=== PATIENT | male | born 1960 | race Hispanic/Latino ===

== ENCOUNTER → 2021-12-07 | Day surgery (SDC) | payer OTHER ==
[~2021-12-07] MED LIST: AMLODIPINE BESY10 MG PO; DIOVAN160 MG PO; FENTANYL CITRATE/PF 100MCG/2 ML INJ ONE; FINASTERIDE5 MG PO; FLOMAX0.4 MG PO; HYOSCYAMINE SULFATE 0.5 MG/ML INJ ONE; MIDAZOLAM HCL 5 MG/ML VIAL ONE; PROPOFOL IV EMULSION 10 MG/ML 20 ML VIAL ONE; XIGDUO XR 5 MG1 EAC1
[2021-12-07 09:15] VITALS: BP 107/74
== END | disposition home or self-care (01) ==
LOC: OR 06:26
PROVIDERS: ATTEND Internal Medicine Gastroenterology
DX: Z12.11 Encounter for screening for malignant neoplasm of colon (principal); D12.2 Benign neoplasm of ascending colon; D12.3 Benign neoplasm of transverse colon; D12.5 Benign neoplasm of sigmoid colon; K62.1 Rectal polyp; K64.8 Other hemorrhoids; I10 Essential (primary) hypertension; E11.9 Type 2 diabetes mellitus without complications; Z01.810 Encounter for preprocedural cardiovascular examination; Z20.822 Contact with and (suspected) exposure to COVID-19; Z79.84 Long term (current) use of oral hypoglycemic drugs; Z79.899 Other long term (current) drug therapy
CPT/HCPCS: 36415; 45385; 82948; 93005; J1980; J2250; J3010

== ENCOUNTER → 2021-12-09 | Outpatient (CLI) | payer OTHER ==
[~2021-12-09] MED LIST changes: -FENTANYL CITRATE/PF 100MCG/2 ML INJ ONE; -HYOSCYAMINE SULFATE 0.5 MG/ML INJ ONE; +IOPAMIDOL 370 MG/ML 100 ML INFUS..BTL INJ ONE; -MIDAZOLAM HCL 5 MG/ML VIAL ONE; -PROPOFOL IV EMULSION 10 MG/ML 20 ML VIAL ONE; +SODIUM CHLORIDE 0.9% 250ML 250 ML ONE
[2021-12-09 10:08] LABS: CREATININE, SERUM 1.38 mg/dL (0.72-1.25)
== END ==
LOC: CT 09:23
PROVIDERS: ATTEND Urology
DX: R31.21 Asymptomatic microscopic hematuria (principal)
CPT/HCPCS: 36415; 74178; 82565; 84520; J7050; Q9967

== ENCOUNTER 2022-03-21 11:31 | Inpatient (IN) | payer OTHER ==
[2022-03-20 11:42] LABS: BASOPHILS % 0.3 % (0.0-1.0); EOSINOPHILS # (AUTO) 0.3 (0.0-0.4); EOSINOPHILS % 3.1 % (0.0-6.0); HEMATOCRIT 34.9 % (38.2-49.6); HEMOGLOBIN 11.3 g/dL (14.0-18.0); LYMPHOCYTES # (AUTO) 1.3 (1.0-3.2); LYMPHOCYTES % 14.2 % (18.0-39.1); MEAN CORPUSCULAR HEMOGLOBIN 28.1 pg (28-32); MEAN CORPUSCULAR HGB CONC 32.4 g/dL (31-35); MEAN CORPUSCULAR VOLUME 86.8 fL (81-99); MONOCYTES # (AUTO) 0.8 (0.2-0.8); MONOCYTES % 8.9 % (4.4-11.3); NEUTROPHILS # (AUTO) 6.6 (2.1-6.9); NEUTROPHILS % 73.2 % (38.7-80.0); PLATELET COUNT 317 x10e3/uL (140-360); RED BLOOD COUNT 4.02 x10e6/uL (4.3-5.7); RED CELL DISTRIBUTION WIDTH 13.2 % (11.7-14.4)
[2022-03-20 12:07] LABS: ANION GAP 16.5 mmol/L (8-16); CALCIUM 9.5 mg/dL (8.4-10.2); CREATININE, SERUM 1.35 mg/dL (0.72-1.25); POTASSIUM 4.5 mmol/L (3.5-5.1)
[~2022-03-21] VITALS: Ht 167.6 cm; Wt 71.2 kg
[~2022-03-21 11:31] MED LIST changes: +DEXAMETHASONE SOD PHOS INJ 4 MG/ML SDV ONE; +EPHEDRINE SULFATE INJ 50 MG/ML VIAL ONE; -IOPAMIDOL 370 MG/ML 100 ML INFUS..BTL INJ ONE; +LIDOCAINE HCL 2% LOCAL INJ 5 ML SDV VIAL INJ ONE; +ONDANSETRON HCL INJ 2MG/ML 2ML 2 MG/ML VIAL ONE; +POVIDONE IODINE 0.05% 0.05 % ML PO ONE; +PROPOFOL IV EMULSION 10 MG/ML 20 ML VIAL ONE; +SEVOFLURANE INHAL SOLN 250 ML PEN BTL ONE; -SODIUM CHLORIDE 0.9% 250ML 250 ML ONE
[2022-03-21] MEDS ORDERED: CEFTRIAXONE 1 GM VIAL ONE (11:50)
[2022-03-21] MEDS ORDERED: GENTAMICIN 80MG/NS 100 ML 200 ML IV ONE (11:50)
[2022-03-21] MEDS ORDERED: SODIUM CHLORIDE 0.9% 1000ML 1,000 ML ONE (12:09)
[2022-03-21] MEDS ORDERED: FENTANYL CITRATE/PF 100MCG/2 ML INJ ONE (13:21)
[2022-03-21] MEDS ORDERED: MIDAZOLAM HCL 2 MG/2 ML VIAL ONE (13:21)
[2022-03-21] MEDS ORDERED: B&O 60MG R/S 60 MG SUPP PR ONE (15:20)
[2022-03-21] MEDS ORDERED: IOPAMIDOL 300MG/ML 50ML INFUS..BTL IV ONE (15:21)
[2022-03-21] MEDS ORDERED: PHENAZOPYRIDINE HCL 100 MG TAB PO PRN (15:30)
[2022-03-21] MEDS ORDERED: DIPHENHYDRAMINE HCL 25 MG CAP PO PRN (15:30)
[2022-03-21] MEDS ORDERED: ONDANSETRON HCL INJ 2MG/ML 2ML 2 MG/ML VIAL IV PRN (15:30)
[2022-03-21] MEDS ORDERED: B&O 60MG R/S 60 MG SUPP PR PRN (15:30)
[2022-03-21] MEDS ORDERED: ACETAMINOPHEN/CODEINE 300MG - 30MG TAB PO PRN (15:30)
[2022-03-21] MEDS: SODIUM CHLORIDE 0.9% 1000ML 1,000 ML IV SCH ×2 (16:45→18:45)
[2022-03-21] MEDS: DOCUSATE SODIUM 100 MG CAP PO SCH (17:00)
[2022-03-21 18:02] LABS: BASOPHILS % 0.3 % (0.0-1.0); EOSINOPHILS # (AUTO) 0.2 (0.0-0.4); EOSINOPHILS % 1.3 % (0.0-6.0); HEMATOCRIT 29.1 % (38.2-49.6); HEMOGLOBIN 9.1 g/dL (14.0-18.0); LYMPHOCYTES # (AUTO) 1.3 (1.0-3.2); MEAN CORPUSCULAR HEMOGLOBIN 28.3 pg (28-32); MEAN CORPUSCULAR HGB CONC 31.3 g/dL (31-35); MEAN CORPUSCULAR VOLUME 90.4 fL (81-99); MONOCYTES # (AUTO) 0.3 (0.2-0.8); MONOCYTES % 2.8 % (4.4-11.3); NEUTROPHILS # (AUTO) 9.3 (2.1-6.9); PLATELET COUNT 225 x10e3/uL (140-360); RED BLOOD COUNT 3.22 x10e6/uL (4.3-5.7); RED CELL DISTRIBUTION WIDTH 13.6 % (11.7-14.4)
[2022-03-21 18:05] VITALS: BP 117/62
[2022-03-21 18:21] LABS: ANION GAP 14.1 mmol/L (8-16); CREATININE, SERUM 0.93 mg/dL (0.72-1.25); POTASSIUM 4.1 mmol/L (3.5-5.1)
[2022-03-21 18:26] LABS: CALCIUM 6.9 mg/dL (8.4-10.2)
[2022-03-21 22:57] VITALS: BP 117/62
[2022-03-21 23:15] VITALS: BP 117/62
[2022-03-22] VITALS (8 sets, daily range): BP systolic 114–149; BP diastolic 66–90
[2022-03-22 06:07] LABS: BASOPHILS % 0.1 % (0.0-1.0); HEMATOCRIT 26.7 % (38.2-49.6); LYMPHOCYTES # (AUTO) 0.6 (1.0-3.2); LYMPHOCYTES % 6.1 % (18.0-39.1); MEAN CORPUSCULAR HEMOGLOBIN 28.8 pg (28-32); MEAN CORPUSCULAR HGB CONC 33.7 g/dL (31-35); MEAN CORPUSCULAR VOLUME 85.6 fL (81-99); MONOCYTES # (AUTO) 0.4 (0.2-0.8); MONOCYTES % 4.4 % (4.4-11.3); NEUTROPHILS # (AUTO) 8.7 (2.1-6.9); PLATELET COUNT 264 x10e3/uL (140-360); RED BLOOD COUNT 3.12 x10e6/uL (4.3-5.7); RED CELL DISTRIBUTION WIDTH 13.4 % (11.7-14.4)
[2022-03-22 06:34] LABS: CALCIUM 7.3 mg/dL (8.4-10.2); CREATININE, SERUM 0.95 mg/dL (0.72-1.25)
[2022-03-22] MEDS: SODIUM CHLORIDE 0.9% 1000ML 1,000 ML IV SCH ×2 (06:40→12:47)
[2022-03-22] MEDS: DOCUSATE SODIUM 100 MG CAP PO SCH ×2 (09:07→17:13)
[2022-03-22] MEDS ORDERED: MAGNESIUM SULF 1GRAM/DEXTROSE 100 ML IV ONE (12:00)
[2022-03-22] MEDS ORDERED: METOPROLOL TARTRATE INJ 1 MG/ML VIAL IV PRN (12:45)
[2022-03-22] MEDS ORDERED: POLYETHYLENE GLYCOL 3350 17 GM PACK PO PRN (12:45)
[2022-03-22] MEDS ORDERED: ONDANSETRON HCL INJ 2MG/ML 2ML 2 MG/ML VIAL IV PRN (12:45)
[2022-03-22] MEDS: AMLODIPINE BESYLATE 10 MG TAB PO SCH (15:13)
[2022-03-22] MEDS ORDERED: DOCUSATE SODIUM 100 MG CAP PO SCH (17:00)
[2022-03-22] MEDS: FAMOTIDINE 20 MG TAB PO SCH (17:14)
[2022-03-23] VITALS (8 sets, daily range): BP systolic 109–152; BP diastolic 56–73
[2022-03-23 06:25] LABS: BASOPHILS % 0.3 % (0.0-1.0); EOSINOPHILS # (AUTO) 0.2 (0.0-0.4); EOSINOPHILS % 2.3 % (0.0-6.0); HEMATOCRIT 23.2 % (38.2-49.6); HEMOGLOBIN 7.7 g/dL (14.0-18.0); LYMPHOCYTES # (AUTO) 2.1 (1.0-3.2); LYMPHOCYTES % 23.4 % (18.0-39.1); MEAN CORPUSCULAR HEMOGLOBIN 28.6 pg (28-32); MEAN CORPUSCULAR HGB CONC 33.2 g/dL (31-35); MEAN CORPUSCULAR VOLUME 86.2 fL (81-99); MONOCYTES # (AUTO) 0.8 (0.2-0.8); MONOCYTES % 9.3 % (4.4-11.3); NEUTROPHILS # (AUTO) 5.7 (2.1-6.9); NEUTROPHILS % 64.4 % (38.7-80.0); PLATELET COUNT 235 x10e3/uL (140-360); RED BLOOD COUNT 2.69 x10e6/uL (4.3-5.7)
[2022-03-23 06:40] LABS: CREATININE, SERUM 1.02 mg/dL (0.72-1.25)
[2022-03-23 08:05] LABS: CHOL/HDL RATIO 7.2 (3.9-4.7); MAGNESIUM 1.9 MG/DL (1.3-2.1); PHOSPHORUS 2.1 MG/DL (2.3-4.7)
[2022-03-23 08:25] LABS: THYROID STIMULATING HORMONE 0.802 uIU/mL (0.350-4.940)
[2022-03-23] MEDS: FINASTERIDE 5 MG TAB PO SCH (08:37)
[2022-03-23] MEDS: DOCUSATE SODIUM 100 MG CAP PO SCH ×2 (08:37→17:09)
[2022-03-23] MEDS: TAMSULOSIN HCL 0.4 MG CAP PO SCH (08:37)
[2022-03-23] MEDS: METFORMIN HCL 500 MG TAB PO SCH (08:38)
[2022-03-23] MEDS: FAMOTIDINE 20 MG TAB PO SCH ×2 (08:38→17:09)
[2022-03-23] MEDS: VALSARTAN 160 MG TAB PO SCH ×2 (08:39→11:35)
[2022-03-23] MEDS: AMLODIPINE BESYLATE 10 MG TAB PO SCH ×2 (08:40→11:35)
[2022-03-23] MEDS: PHOSPHORUS 250 MG TAB PO SCH (10:23)
[2022-03-23] MEDS: SODIUM CHLORIDE 0.9% 1000ML 1,000 ML IV SCH (17:08)
[2022-03-24] VITALS (8 sets, daily range): BP systolic 110–147; BP diastolic 66–82
[2022-03-24] MEDS: SODIUM CHLORIDE 0.9% 1000ML 1,000 ML IV SCH ×3 (04:45→16:44)
[2022-03-24 05:33] LABS: BASOPHILS % 0.5 % (0.0-1.0); EOSINOPHILS # (AUTO) 0.3 (0.0-0.4); EOSINOPHILS % 3.1 % (0.0-6.0); HEMATOCRIT 27.4 % (38.2-49.6); HEMOGLOBIN 8.6 g/dL (14.0-18.0); LYMPHOCYTES # (AUTO) 1.9 (1.0-3.2); MEAN CORPUSCULAR HEMOGLOBIN 27.9 pg (28-32); MEAN CORPUSCULAR HGB CONC 31.4 g/dL (31-35); MONOCYTES # (AUTO) 0.7 (0.2-0.8); MONOCYTES % 8.8 % (4.4-11.3); NEUTROPHILS # (AUTO) 5.2 (2.1-6.9); NEUTROPHILS % 63.9 % (38.7-80.0); PLATELET COUNT 248 x10e3/uL (140-360); RED BLOOD COUNT 3.08 x10e6/uL (4.3-5.7); RED CELL DISTRIBUTION WIDTH 13.5 % (11.7-14.4)
[2022-03-24 05:57] LABS: ANION GAP 14.7 mmol/L (8-16); CREATININE, SERUM 0.94 mg/dL (0.72-1.25); POTASSIUM 3.7 mmol/L (3.5-5.1)
[2022-03-24] MEDS: AMLODIPINE BESYLATE 10 MG TAB PO SCH (08:20)
[2022-03-24] MEDS: TAMSULOSIN HCL 0.4 MG CAP PO SCH (08:20)
[2022-03-24] MEDS: FAMOTIDINE 20 MG TAB PO SCH ×2 (08:21→16:45)
[2022-03-24] MEDS: DOCUSATE SODIUM 100 MG CAP PO SCH ×2 (08:21→16:45)
[2022-03-24] MEDS: FINASTERIDE 5 MG TAB PO SCH (08:21)
[2022-03-24] MEDS: PHOSPHORUS 250 MG TAB PO SCH (08:21)
[2022-03-24] MEDS: METFORMIN HCL 500 MG TAB PO SCH (08:21)
[2022-03-24] MEDS: VALSARTAN 160 MG TAB PO SCH (08:22)
[2022-03-25] VITALS (8 sets, daily range): BP systolic 123–158; BP diastolic 72–86
[2022-03-25] MEDS: SODIUM CHLORIDE 0.9% 1000ML 1,000 ML IV SCH ×2 (05:24→21:12)
[2022-03-25 05:58] LABS: BASOPHILS % 0.3 % (0.0-1.0); EOSINOPHILS # (AUTO) 0.3 (0.0-0.4); EOSINOPHILS % 4.2 % (0.0-6.0); HEMATOCRIT 24.1 % (38.2-49.6); HEMOGLOBIN 7.7 g/dL (14.0-18.0); LYMPHOCYTES # (AUTO) 1.6 (1.0-3.2); LYMPHOCYTES % 21.4 % (18.0-39.1); MEAN CORPUSCULAR VOLUME 87.6 fL (81-99); MONOCYTES # (AUTO) 0.7 (0.2-0.8); MONOCYTES % 9.5 % (4.4-11.3); NEUTROPHILS # (AUTO) 4.9 (2.1-6.9); NEUTROPHILS % 64.1 % (38.7-80.0); PLATELET COUNT 236 x10e3/uL (140-360); RED BLOOD COUNT 2.75 x10e6/uL (4.3-5.7); RED CELL DISTRIBUTION WIDTH 13.2 % (11.7-14.4)
[2022-03-25 06:16] LABS: ANION GAP 13.7 mmol/L (8-16); CALCIUM 8.6 mg/dL (8.4-10.2); CREATININE, SERUM 0.87 mg/dL (0.72-1.25); POTASSIUM 3.7 mmol/L (3.5-5.1)
[2022-03-25] MEDS: TAMSULOSIN HCL 0.4 MG CAP PO SCH (08:43)
[2022-03-25] MEDS: FINASTERIDE 5 MG TAB PO SCH (08:44)
[2022-03-25] MEDS: DOCUSATE SODIUM 100 MG CAP PO SCH ×2 (08:44→16:43)
[2022-03-25] MEDS: FAMOTIDINE 20 MG TAB PO SCH ×2 (08:44→16:43)
[2022-03-25] MEDS: VALSARTAN 160 MG TAB PO SCH (08:45)
[2022-03-25] MEDS: METFORMIN HCL 500 MG TAB PO SCH (08:46)
[2022-03-25] MEDS: AMLODIPINE BESYLATE 10 MG TAB PO SCH (08:46)
[2022-03-25] MEDS: PHOSPHORUS 250 MG TAB PO SCH (08:46)
[2022-03-25] MEDS: ACETAMINOPHEN 325 MG TAB PO PRN ×2 (08:47→16:44)
[2022-03-25 10:21] LABS: FERRITIN 122.84 ng/mL (21.81-274.66)
[2022-03-25] MEDS: ASCORBIC ACID 500 MG TAB PO SCH ×2 (12:18→16:43)
[2022-03-25] MEDS: IRON SUCROSE 100 MG in SODIUM CHLORIDE 0.9% 100 ML IV SCH (12:40)
[2022-03-26] VITALS (11 sets, daily range): BP systolic 127–151; BP diastolic 68–78
[2022-03-26 05:47] LABS: BASOPHILS % 0.4 % (0.0-1.0); EOSINOPHILS # (AUTO) 0.4 (0.0-0.4); EOSINOPHILS % 5.4 % (0.0-6.0); HEMOGLOBIN 8.3 g/dL (14.0-18.0); LYMPHOCYTES # (AUTO) 1.4 (1.0-3.2); LYMPHOCYTES % 18.4 % (18.0-39.1); MEAN CORPUSCULAR HEMOGLOBIN 27.7 pg (28-32); MEAN CORPUSCULAR HGB CONC 33.2 g/dL (31-35); MEAN CORPUSCULAR VOLUME 83.3 fL (81-99); MONOCYTES # (AUTO) 0.8 (0.2-0.8); MONOCYTES % 9.7 % (4.4-11.3); NEUTROPHILS # (AUTO) 5.1 (2.1-6.9); NEUTROPHILS % 65.5 % (38.7-80.0); PLATELET COUNT 253 x10e3/uL (140-360); RED CELL DISTRIBUTION WIDTH 13.3 % (11.7-14.4)
[2022-03-26 06:23] LABS: ANION GAP 12.8 mmol/L (8-16); CALCIUM 8.4 mg/dL (8.4-10.2); CREATININE, SERUM 0.92 mg/dL (0.72-1.25); MAGNESIUM 1.8 MG/DL (1.3-2.1); PHOSPHORUS 2.7 MG/DL (2.3-4.7); POTASSIUM 3.8 mmol/L (3.5-5.1)
[2022-03-26] MEDS: VALSARTAN 160 MG TAB PO SCH (08:57)
[2022-03-26] MEDS: PHOSPHORUS 250 MG TAB PO SCH (08:57)
[2022-03-26] MEDS: DOCUSATE SODIUM 100 MG CAP PO SCH ×2 (08:58→16:40)
[2022-03-26] MEDS: FAMOTIDINE 20 MG TAB PO SCH ×2 (08:58→16:40)
[2022-03-26] MEDS: TAMSULOSIN HCL 0.4 MG CAP PO SCH (08:58)
[2022-03-26] MEDS: AMLODIPINE BESYLATE 10 MG TAB PO SCH (08:58)
[2022-03-26] MEDS: FINASTERIDE 5 MG TAB PO SCH (08:58)
[2022-03-26] MEDS: ASCORBIC ACID 500 MG TAB PO SCH ×2 (08:58→16:40)
[2022-03-26] MEDS: METFORMIN HCL 500 MG TAB PO SCH (08:58)
[2022-03-26] MEDS: IRON SUCROSE 100 MG in SODIUM CHLORIDE 0.9% 100 ML IV SCH (11:44)
[2022-03-26] MEDS: ACETAMINOPHEN 325 MG TAB PO PRN (14:32)
[2022-03-26] MEDS: SODIUM CHLORIDE 0.9% 1000ML 1,000 ML IV SCH (17:45)
[2022-03-27 04:00] VITALS: BP 134/75
[2022-03-27] MEDS: SODIUM CHLORIDE 0.9% 1000ML 1,000 ML IV SCH (07:44)
[2022-03-27 08:18] VITALS: BP 147/75
[2022-03-27 08:21] VITALS: BP 147/75
[2022-03-27] MEDS: ASCORBIC ACID 500 MG TAB PO SCH ×2 (08:44→16:45)
[2022-03-27] MEDS: METFORMIN HCL 500 MG TAB PO SCH (08:45)
[2022-03-27] MEDS: FAMOTIDINE 20 MG TAB PO SCH ×2 (08:45→16:46)
[2022-03-27] MEDS: PHOSPHORUS 250 MG TAB PO SCH (08:45)
[2022-03-27] MEDS: TAMSULOSIN HCL 0.4 MG CAP PO SCH (08:45)
[2022-03-27] MEDS: FINASTERIDE 5 MG TAB PO SCH (08:45)
[2022-03-27] MEDS: AMLODIPINE BESYLATE 10 MG TAB PO SCH (08:45)
[2022-03-27] MEDS: VALSARTAN 160 MG TAB PO SCH (08:45)
[2022-03-27] MEDS: DOCUSATE SODIUM 100 MG CAP PO SCH ×2 (08:46→16:45)
[2022-03-27] MEDS: ACETAMINOPHEN 325 MG TAB PO PRN (10:53)
[2022-03-27] MEDS: IRON SUCROSE 100 MG in SODIUM CHLORIDE 0.9% 100 ML IV SCH (11:29)
[2022-03-27 12:37] VITALS: BP 133/66
[2022-03-27 16:12] VITALS: BP 131/67
[2022-03-27] MEDS ORDERED: ONDANSETRON HCL 4 MG ORAL DISINTEGRATING TAB PO PRN (19:45)
[2022-03-28] MEDS ORDERED: ASCORBIC ACID 500 MG TAB PO SCH (09:00)
[2022-03-28] MEDS ORDERED: FERROUS SULFATE 325 MG TAB PO SCH (09:00)
[2022-03-28] MEDS ORDERED: PHENAZOPYRIDINE HCL 100 MG TAB PO SCH (09:00)
[2022-03-28] MEDS ORDERED: PHOSPHORUS 250 MG TAB PO SCH (09:00)
== END 2022-03-27 19:44 | disposition home or self-care (01) | DRG 666 ==
LOC: OR 11:31 → PACU V 15:25 → MED/SURG3 18:05
PROVIDERS: ADMIT Internal Medicine; ATTEND Internal Medicine
PROC: 0T7D8ZZ Dilation of Urethra, Via Natural or Artificial Opening Endoscopic (ICD-10-PCS; 2022-03-21)
PROC: BT141ZZ Fluoroscopy of Kidneys, Ureters and Bladder using Low Osmolar Contrast (ICD-10-PCS; 2022-03-21)
PROC: 0V508ZZ Destruction of Prostate, Via Natural or Artificial Opening Endoscopic (ICD-10-PCS; principal; 2022-03-21 15:18)
DX: N13.8 Other obstructive and reflux uropathy (principal); N39.0 Urinary tract infection, site not specified; N40.1 Benign prostatic hyperplasia with lower urinary tract symptoms; N41.9 Inflammatory disease of prostate, unspecified; E11.65 Type 2 diabetes mellitus with hyperglycemia; I10 Essential (primary) hypertension; R97.20 Elevated prostate specific antigen [PSA]; N52.9 Male erectile dysfunction, unspecified; E83.42 Hypomagnesemia; E87.5 Hyperkalemia; R39.12 Poor urinary stream; Z83.3 Family history of diabetes mellitus; Z82.49 Family history of ischemic heart disease and other diseases of the circulatory system; Z72.89 Other problems related to lifestyle; B95.7 Other staphylococcus as the cause of diseases classified elsewhere; B95.2 Enterococcus as the cause of diseases classified elsewhere; B95.4 Other streptococcus as the cause of diseases classified elsewhere; E83.39 Other disorders of phosphorus metabolism; N35.919 Unspecified urethral stricture, male, unspecified site
CPT/HCPCS: 0223U; 36415; 74420; 80048; 80061; 82270; 82607; 82728; 82746; 82948; 83036; 83540; 83735; 84100; 84443; 84466; 85025; 85045; 88304; 88305; 93005; 94799; 96361; C1758; J0696; J1100; J1580; J1756; J2001; J2250; J2405; J3010; J3475; J7030; J7050